=== PATIENT | male | born 1960 | race Caucasian/White ===

== ENCOUNTER → 2024-03-18 13:29 | Outpatient (REF) | payer OTHER, SELFPAY | LOC: HWRCS 13:29 | PROVIDERS: ATTENDING PHYSICIAN Nurse Practitioner; FAMILY PHYSICIAN Physician Assistant Medical | DX: I35.1 Nonrheumatic aortic (valve) insufficiency (principal); R06.09 Other forms of dyspnea; R00.2 Palpitations; I10 Essential (primary) hypertension | CPT/HCPCS: 93306 ==

== ENCOUNTER → 2024-03-26 12:50 | Outpatient (REF) | payer OTHER, SELFPAY | LOC: RCS 12:50 | PROVIDERS: ATTENDING PHYSICIAN Nurse Practitioner; FAMILY PHYSICIAN Physician Assistant Medical | DX: R06.09 Other forms of dyspnea (principal); I35.1 Nonrheumatic aortic (valve) insufficiency; R00.2 Palpitations; I10 Essential (primary) hypertension | CPT/HCPCS: 93017; 93350 ==

== ENCOUNTER → 2024-04-08 08:47 | Outpatient (REF) | payer OTHER, SELFPAY | LOC: RCS 08:47 | PROVIDERS: ATTENDING PHYSICIAN Nurse Practitioner; FAMILY PHYSICIAN Physician Assistant Medical | DX: R06.09 Other forms of dyspnea (principal); I35.1 Nonrheumatic aortic (valve) insufficiency; R00.2 Palpitations; I10 Essential (primary) hypertension | CPT/HCPCS: 93225; 93226 ==